=== PATIENT | male | born 1985 | race Caucasian/White ===

== ENCOUNTER 2017-02-20 15:22 | Emergency (ER) | payer MEDICARE ==
[~2017-02-20] VITALS: Ht 195.6 cm; Wt 90.0 kg
[~2017-02-20 15:22] MED LIST: HYDR-3533 PO
[2017-02-20 15:39] VITALS: BP 122/78; PULSE 74; RESP 46; TEMP 97.9; O2SAT 100
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
--- NOTE | 2017-02-20 17:15 | RADRPT ---
EXAM DATE/TIME: 02/20/2017 16:05 [facility] COMPARISON: No previous studies available for comparison. INDICATIONS : Left leg edema. MEDICAL HISTORY : DVT. Osteoarthritis. SURGICAL HISTORY : Back surgery. Right hip yolanda placement. ENCOUNTER: Initial ACUITY: 1 day PAIN SCORE: 7/10 LOCATION: Left leg. TECHNIQUE: Venous ultrasound of the leg was performed from the inguinal ligament to the proximal calf. Real-time, color Doppler and spectral tracing, compression and augmentation techniques were us ed. FINDINGS: There is a single left calf vein that is noncompressible and demonstrates no flow. There is normal co mpressibility of the deep venous system from the inguinal region to the remaining proximal calf. No echogenic clot is seen in the lumen of the common femoral, femoral, popliteal, and remaining posterio r tibial veins. There is a normal response of the venous system to proximal and distal augmentation and respiration. CONCLUSION: 1. Very limited short segment left calf vein DVT. Paxton Fonseca MD on February 20, 2017 at 17:09 Board Certified Radiologist. This report was verified electronically.
[2017-02-20] MEDS ORDERED: oxyCODONE/ACETAMINOPHEN 10 MG/325 MG TAB PO ONE (18:30)
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
[2017-02-20 19:24] LABS: APTT (PATIENT) 27.1 SEC (24.3-30.1); PROTHROMBIN TIME - PATIENT 10.7 SEC (9.8-11.6)
[2017-02-20 19:35] VITALS: BP 124/87; PULSE 67; RESP 18; O2SAT 99
[2017-02-20 19:37] LABS: BICARBONATE 27.4 MEQ/L (21.0-32.0); POTASSIUM 3.6 MEQ/L (3.5-5.1)
[2017-02-20] MEDS ORDERED: ENOXAPARIN SODIUM 100 MG/ML SYRINGE SQ STA (20:08)
[2017-02-20] MEDS ORDERED: ENOX100P SQ (20:22)
[2017-02-20] MEDS ORDERED: TYLE325T PO (20:23)
== END 2017-02-20 21:51 | disposition home or self-care (01) ==
LOC: NEPD 15:22
DX: I82.4Z2 Acute embolism and thrombosis of unspecified deep veins of left distal lower extremity (principal); G82.20 Paraplegia, unspecified
CPT/HCPCS: 80048; 85610; 85730; 93971; 99285

== ENCOUNTER 2017-04-02 00:15 | Emergency (ER) | payer MEDICARE ==
[~2017-04-02] VITALS: Ht 193 cm; Wt 95.0 kg
[~2017-04-02 00:15] MED LIST changes: +ENOX100P SQ; +TYLE325T PO; +[UNRECOGNIZED DRUG - CODE] TOPICAL
[2017-04-02 00:16] VITALS: BP 155/81; PULSE 93; RESP 16; TEMP 98.8; O2SAT 97
[2017-04-02] MEDS ORDERED: PERC5TAB12 PO (05:16)
== END 2017-04-02 01:15 | disposition left against medical advice (07) ==
LOC: NED 00:15
DX: M54.9 Dorsalgia, unspecified (principal); Z53.21 Procedure and treatment not carried out due to patient leaving prior to being seen by health care provider
CPT/HCPCS: 99281